=== PATIENT | male | born 1985 | race Hispanic/Latino ===

== ENCOUNTER 2018-12-30 18:49 | Emergency (ER) | payer OTHER ==
[~2018-12-30] VITALS: Ht 170.2 cm; Wt 93.0 kg
--- NOTE | 2018-12-30 19:59 | Diagnostic Imaging Report ---
Exam: Lumbar spine AP lateral History: Back pain Comparison: None. Findings: No fracture or malalignment. Disc spaces preserved. No abnormal soft tissue calcification or soft tissue defect. Impression: No acute osseous abnormality Signed by: Dr. Geovanni Castellanos M.D. on 12/30/2018 7:56 PM
[2018-12-30] MEDS ORDERED: KETOROLAC TROMETHAMINE 60 MG/2 ML VIAL IM ONE (20:30)
== END 2018-12-30 20:20 | disposition home or self-care (01) ==
LOC: FSED 18:49
DX: M54.5 Low back pain (principal); S39.012A Strain of muscle, fascia and tendon of lower back, initial encounter; S33.5XXA Sprain of ligaments of lumbar spine, initial encounter; S30.0XXA Contusion of lower back and pelvis, initial encounter; V43.52XA Car driver injured in collision with other type car in traffic accident, initial encounter; Y92.488 Other paved roadways as the place of occurrence of the external cause
CPT/HCPCS: 72100; 99283; J1885